=== PATIENT | female | born 2000 | race Caucasian/White ===

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

== ENCOUNTER 2019-11-03 22:50 | Emergency (ER) | payer MEDICAID ==
[~2019-11-03] VITALS: Ht 162.6 cm; Wt 96.2 kg
[2019-11-03 23:12] VITALS: Ht 162.6 cm; Wt 96.2 kg
[2019-11-04 02:37] VITALS: BP 145/96
== END 2019-11-04 01:21 | disposition home or self-care (01) ==
LOC: ED 22:50
DX: J06.9 Acute upper respiratory infection, unspecified (principal); Z88.5 Allergy status to narcotic agent
CPT/HCPCS: Q0092

== ENCOUNTER 2020-09-22 14:52 | Emergency (ER) | payer MEDICAID ==
[~2020-09-22] VITALS: Ht 162.6 cm; Wt 97.5 kg
[2020-09-22 15:11] VITALS: Ht 162.6 cm; Wt 97.5 kg
[2020-09-22 16:14] VITALS: BP 150/89
== END 2020-09-22 16:14 | disposition home or self-care (01) ==
LOC: ED 14:52
DX: H10.32 Unspecified acute conjunctivitis, left eye (principal); E66.9 Obesity, unspecified; Z68.36 Body mass index [BMI] 36.0-36.9, adult